=== PATIENT | male | born 1955 | race African-American/Black ===

== ENCOUNTER 2022-11-02 12:59 | Emergency (ER) | payer BC ==
[~2022-11-02] VITALS: Ht 172.7 cm; Wt 99.8 kg
[2022-11-02] MEDS ORDERED: hydrALAZINE HCL 25 MG TABLET PO ONE (13:30)
[2022-11-02] MEDS ORDERED: AMLO-212 PO (15:04)
[2022-11-02] MEDS ORDERED: AMLODIPINE BESYLATE 5 MG TABLET PO ONE (15:30)
[2022-11-02] MEDS ORDERED: AMLODIPINE BESYLATE 5 MG TABLET ONE (15:31)
[2022-11-02 16:08] VITALS: BP 169/100; TEMP 98.1; O2SAT 100
== END 2022-11-02 16:08 | disposition home or self-care (01) ==
LOC: ER 13:14
DX: M25.552 Pain in left hip (principal); M25.551 Pain in right hip; I10 Essential (primary) hypertension; V89.2XXA Person injured in unspecified motor-vehicle accident, traffic, initial encounter; Y93.89 Activity, other specified; Y92.89 Other specified places as the place of occurrence of the external cause; Y99.8 Other external cause status
CPT/HCPCS: 72170-TC; 73552